=== PATIENT | male | born 1985 | race American Indian/Alaskan Native ===

== ENCOUNTER 2016-11-14 23:52 | Emergency (ER) | payer SELFPAY ==
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
[2016-11-15 04:24] VITALS: BP 120/67
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
[2016-11-15] MEDS ORDERED: NORCO 5/325 PO ONE (05:00)
[2016-11-15] MEDS ORDERED: MOTRIN PO ONE (05:00)
[2016-11-15] MEDS ORDERED: BOOSTRIX IM ONE (05:00)
--- NOTE | 2016-11-15 09:44 | XRay Report ---
LEFT HUMERUS: History: Left arm pain. AP and lateral views of the humerus demonstrate normal mineralization and contours for this patient's age. No destructive changes are noted and the adjacent soft tissues are normal. IMPRESSION: Normal left humerus.
--- NOTE | 2016-11-15 09:44 | XRay Report ---
LEFT FEMUR: History: Left leg pain. AP and lateral views of the femur demonstrate normal mineralization and contours for this patient's age. No destructive changes are noted and the adjacent soft tissues are normal. IMPRESSION: Normal left femur.
--- NOTE | 2016-11-15 09:45 | XRay Report ---
LEFT FOREARM: History: Left forearm pain. AP and lateral views of the forearm demonstrate normal mineralization and contours for this patient's age. No destructive changes are noted and the adjacent soft tissues are normal. IMPRESSION: Normal left forearm.
--- NOTE | 2016-11-15 09:45 | XRay Report ---
LEFT SHOULDER: History: Left shoulder pain. Routine views demonstrate normal bony and soft tissue structures with normal joint alignment of the shoulder. IMPRESSION: Normal study.
--- NOTE | 2016-11-17 07:22 | XRay Report ---
RIGHT FINGERS, 2 views: History: Right index finger pain. The bony architecture is intact. Bony alignment is normal. No soft tissue abnormalities are seen. The joint spaces appear preserved. IMPRESSION: Unremarkable right index finger.
== END 2016-11-15 05:54 | disposition home or self-care (01) ==
LOC: ED 23:52
DX: S61.210A Laceration without foreign body of right index finger without damage to nail, initial encounter (principal); S40.022A Contusion of left upper arm, initial encounter; Y04.8XXA Assault by other bodily force, initial encounter; Y93.89 Activity, other specified; Y99.8 Other external cause status; Y92.89 Other specified places as the place of occurrence of the external cause
CPT/HCPCS: 70450; 72125; 90471; 90715